=== PATIENT | male | born 1990 | race Caucasian/White ===

== ENCOUNTER 2017-01-02 17:14 | Emergency (ER) | payer OTHER ==
--- NOTE | 2017-01-03 09:26 | ER ---
ADMIT: 01/02/2017 RM/LOC: ER [facility] MR#: [id number] [place], [place] [id number] LONIURSZULA Isac [facility] [place] [address] Emergency Room Report SEX: M AGE: 26 : 1990 DATE: 01/02/2017 ADDENDUM: CHIEF COMPLAINT: Abdominal pain. HISTORY OF PRESENT ILLNESS: This is a 26-year-old, who had this abdominal pain intermittently for the last 3-4 weeks. He said at times, he thinks there has been bright red blood in his stool. At this time, he just came because he has been missing a lot of work and wanted to try to figure out what was going on. CBC is normal except for hemoglobin of 13.7. Urine is clear. Hemoccult was negative. I am sending him home with Carafate, have him take over-the- counter Zantac and follow up with his PCP next week. CLINICAL IMPRESSION: Gastroesophageal reflux disease. TAY Raines / Rick Omalley MD / kary JOB #: [id number] CC: Rick Omalley MD, Attending Physician
== END 2017-01-02 19:25 | disposition home or self-care (01) ==
LOC: ER 17:14
DX: K21.9 Gastro-esophageal reflux disease without esophagitis (principal); F17.210 Nicotine dependence, cigarettes, uncomplicated